=== PATIENT | male | born 1930 | race Caucasian/White ===

== ENCOUNTER 2016-12-09 07:46 | Day surgery (SDC) | payer MEDICARE ==
[~2016-12-09 07:46] MED LIST: CEFAZOLIN SODIUM 2 GRAM PREMIX 100 ML IV ONE; IV START KIT ONE; LACTATED RINGERS 1,000 ML ONE
[2016-12-09] MEDS ORDERED: CEFAZOLIN SODIUM 2 GRAM DUPLEX 50 ML IV PRN (08:00)
[2016-12-09] MEDS ORDERED: FENTANYL 5 ML ONE (08:42)
[2016-12-09] MEDS ORDERED: MIDAZOLAM HCL 1 MG/ML 2ML VIAL ONE (08:42)
[2016-12-09] MEDS ORDERED: IOPAMIDOL 300 (61%) 30 ML SDV ONE (08:42)
[2016-12-09] MEDS ORDERED: SODIUM CHLORIDE 0.9% 50 ML ONE (08:42)
[2016-12-09] MEDS ORDERED: BUPIVACAINE 0.5% W/EPI SDV 30 ML VIAL ONE (08:42)
[2016-12-09] MEDS ORDERED: LIDOCAINE 2% (MULTI DOSE) 10 ML VIAL ONE (09:09)
[2016-12-09] MEDS ORDERED: ROCURONIUM BROMIDE 10 MG/ML DOSE IV ONE (09:09)
[2016-12-09] MEDS ORDERED: SUCCINYLCHOLINE CHL 20 MG/ML DOSE ONE (09:09)
[2016-12-09] MEDS ORDERED: PROPOFOL 20 ML IV ONE (09:09)
[2016-12-09] MEDS ORDERED: ONDANSETRON 4 MG/2ML 2 ML VIAL IV PRN (09:10)
[2016-12-09] MEDS ORDERED: ATROPINE SULFATE 0.4 MG/1 ML VIAL IV PRN (09:10)
[2016-12-09] MEDS ORDERED: PROMETHAZINE HCL 25 MG/ML VIAL IM PRN (09:10)
[2016-12-09] MEDS ORDERED: FENTANYL 100 MCG/2 ML VIAL IV PRN (09:10)
[2016-12-09] MEDS ORDERED: NALOXONE HCL 0.4 MG/ML VIAL IV PRN (09:10)
[2016-12-09] MEDS ORDERED: LACTATED RINGERS 1,000 ML IV SCH (09:15)
[2016-12-09] MEDS ORDERED: ONDANSETRON 4 MG/2ML 2 ML VIAL ONE (09:49)
[2016-12-09] MEDS ORDERED: DEXAMETHASONE SOD PHOS 4 MG/1 ML VIAL ONE (09:49)
[2016-12-09] MEDS ORDERED: EPHEDRINE SULFATE UD SYR 25 MG 25 MG/5 ML SYRINGE IV ONE (09:52)
[2016-12-09] MEDS ORDERED: GLYCOPYRROLATE 0.2 MG/ML 1ML VIAL ONE (10:54)
[2016-12-09] MEDS ORDERED: NEOSTIGMINE METHYLSULFATE 1 MG/ML DOSE ONE (10:54)
[2016-12-09] MEDS ORDERED: HYDRALAZINE HCL 20 MG/1 ML VIAL IV PRN (11:13)
[2016-12-09 11:14] VITALS: BMI 23.6
[2016-12-09] MEDS ORDERED: HYDROMORPHONE HCL 1 MG/ML SYRINGE ONE (11:29)
[2016-12-09] MEDS: HYDROMORPHONE HCL 1 MG/ML SYRINGE IV PRN ×2 (11:31→11:40)
[2016-12-09] MEDS ORDERED: FENTANYL 100 MCG/2 ML VIAL ONE (11:43)
--- NOTE | 2016-12-09 11:43 | RAD ---
CHOLANGIOGRAM-OPERATIVE HISTORY: Operative cholecystectomy. COMPARISONS: None. FINDINGS: Multiple intraoperative fluoroscopic images were submitted demonstrating injection of the cystic duct stump. There is contrast filled of the extrahepatic biliary tree and a portion of the intrahepatic biliary tree. The visualized common bile duct appears to be prominent though no definite retained filling defects are suggested. Flow of contrast is noted into the duodenal C-sweep. A total of 62 seconds of fluoroscopy was utilized for the examination. IMPRESSION: 1. Intraoperative fluoroscopy following cholecystectomy with no definitive retained filling defects observed and flow of contrast noted into the duodenal C-sweep.
[2016-12-09] MEDS ORDERED: HYDROMORPHONE HCL 1 MG/ML SYRINGE IV PRN (11:56)
[2016-12-09] MEDS ORDERED: PUMP TUBING ONE (12:25)
[2016-12-09] MEDS ORDERED: SODIUM CHLORIDE 0.9% FLUSH 20 ML ONE (12:25)
[2016-12-09] MEDS: LACTATED RINGERS 1,000 ML IV SCH (12:33)
[2016-12-09] MEDS ORDERED: HYDROMORPHONE HCL 0.5 MG/0.5 ML SYRINGE IV PRN (12:53)
[2016-12-09] MEDS: ONDANSETRON 4 MG/2ML 2 ML VIAL IV PRN ×2 (14:23→19:57)
[2016-12-09] MEDS: OXYCODONE HCL 5 MG TABLET PO PRN ×2 (16:49→21:23)
[2016-12-09] MEDS: ACETAMINOPHEN 325 MG TABLET PO PRN ×2 (16:49→23:57)
--- NOTE | 2016-12-09 20:52 | OP ---
ELSA HAILE [id number] DATE OF OPERATION: December 09, 2016 PREOPERATIVE DIAGNOSIS: Chronic cholecystitis with cholelithiasis. POSTOPERATIVE DIAGNOSES: 1. Chronic cholecystitis with cholelithiasis. 2. Dilated common bile duct. 3. Intraabdominal adhesions. PROCEDURES: 1. LAPAROSCOPIC CHOLECYSTECTOMY WITH INTRAOPERATIVE CHOLANGIOGRAM. 2. LYSIS OF ADHESIONS. SURGEON: Carlos Scott M.D. LAW TUTOR: Kristi Espinoza ANESTHESIA: General endotracheal by Yunior Bello C.R.N.A. INDICATIONS: This is an 86-year-old male who has had symptoms of chronic biliary colic. He has ultrasound evidence of cholelithiasis. On ultrasound he was not noted to have biliary dilation. DESCRIPTION: With informed consent he was taken to the operating room where he was laid supine on the operating room table. General endotracheal anesthetic was administered. The abdomen was prepped and draped in the usual sterile fashion. Marcaine was infiltrated below the umbilicus. Incision was made. We dissected down to the fascia, grasped that with Bharat clamps and divided it with curved Sellers scissors. Sutures of Surgilon were placed in the fascial edges and a Tristian port was placed. A pneumoperitoneum was created. We could see that there were adhesions up in the right upper quadrant extending down into the right lower quadrant. There was no clear cause for this. I decided to place a port to the left of midline in the upper abdomen. This was a 5 mm port. Using that, I was able to take the adhesions down from the anterior abdominal wall in the right upper quadrant extending down into the right lower quadrant to the lateral gutter. Again, no clear cause for this was seen. After this, two 5 mm ports were placed on the right lateral abdominal wall. The fundus of the gallbladder was grasped and retracted cephalad. There were adhesions of the duodenum up to the gallbladder. This was carefully dissected free. Eventually we identified a large dilated cyst duct. I was able to identify a cystic duct common duct junction. The common bile duct appeared possibly dilated as well. A clip was placed on the cystic duct near the gallbladder. The duct was partially transected. A cholangiogram catheter was placed. A cholangiogram was obtained showing a dilated common bile duct. There was possibly some sludge down in the distal common bile duct but no clear defined stone. Contrast easily flowed into the duodenum. I was confident in my cystic duct common duct junction anatomy. Contrast was seen refluxing up into the hepatic ducts. The catheter was removed. We ended up placing three clips across the cystic duct stump and it was completely transected. The cystic artery was identified and dissected free. Three clips were placed and it was transected leaving two clips on the stump. The gallbladder was then taken off the liver bed using electrocautery. Once , it was placed within an EndoCatch bag and removed through the infraumbilical port site. The right upper quadrant was irrigated. We appeared to have adequate hemostasis. The ports were removed, and the pneumoperitoneum was evacuated. The infraumbilical fascial defect was closed with [id number] suture of Surgilon. The other fascial defects were small. Skin was closed with subcuticular #4-0 Monocryl. Mastisol and SteriStrips were placed. Sterile dressings were applied. He tolerated the procedure and was taken to the recovery room in stable condition. A note was made that needle, instrument and lap counts were reported as correct at the time of closure. Cc: Alex Bryan M.D.
[2016-12-09] MEDS ORDERED: Non Formulary Drug 1 EACH EA (Omega-3 Fatty Acids/Fish Oil [Fish Oil 1,000 Mg Softgel] 1 E PO SCH (21:00)
[2016-12-09] MEDS ORDERED: TOLTERODINE LA 4 MG CAPSULE PO SCH (21:00)
[2016-12-09] MEDS ORDERED: FLUNISOLIDE NS SCH (21:00)
[2016-12-09] MEDS: METOPROLOL TARTRATE 25 MG TABLET PO SCH (21:00)
[2016-12-09] MEDS ORDERED: POLYETHYLENE GLYCOL 3350 17 G POWD.SUSP PO SCH (22:00)
[2016-12-10] MEDS: LACTATED RINGERS 1,000 ML IV SCH (04:13)
[2016-12-10 06:51] LABS: HEMATOCRIT 34.9 % (32.0-52.0); HEMOGLOBIN 11.9 gm/l (14.0-18.0); MEAN CELL VOLUME 94.1 fl (80.0-94.0); MEAN CORPUSCULAR HEMOGLOBIN 32.1 pg (27.0-31.0); MEAN CORPUSCULAR HGB CONC 34.1 g/dl (33.0-37.0); RED CELL DISTRIBUTION WIDTH 12.7 % (11.5-14.5)
[2016-12-10 07:14] LABS: ALB/GLOB RATIO 1.3 (>1.0); ALBUMIN 3.2 gm/dL (3.5-5.7); CALCIUM 8.4 mg/dL (8.6-10.3)
[2016-12-10] MEDS ORDERED: LEVOTHYROXINE SODIUM 88 MCG TABLET PO SCH (07:30)
[2016-12-10 07:35] VITALS: BP 143/80
[2016-12-10] MEDS: ACETAMINOPHEN 325 MG TABLET PO PRN (07:46)
--- NOTE | 2016-12-10 07:50 | PDOC43 ---
- Subjective Subjective: Reports Pain Tolerable, Denies Bloating, Denies Nausea - Objective Vital Signs Temperature 97.8 F 12/10/16 07:33 Pulse Rate 97 12/10/16 07:33 Respiratory Rate 17 12/10/16 07:33 Blood Pressure 143/80 12/10/16 07:33 O2 Saturation by Pulse Oximetry 98 12/10/16 07:33 Oxygen Delivery Method Room Air Oxygen Flow Rate 0 Laboratory 12/10/16 06:35 12/10/16 06:35 12/10/16 06:35 RBC 3.71 L MCV 94.1 H MCH 32.1 H Calcium 8.4 L AST 54 H Total Protein 5.6 L Albumin 3.2 L Active Medication Orders Category Date Time Status Acetaminophen [Tylenol] Med 12/09/16 11:56 Active 650 mg PO Q6H PRN Calcium Carbonate/Vitamin D3 Med 12/10/16 09:00 Active 1 each PO DAILY Calcium Polycarbophil [Fibercon] Med 12/10/16 09:00 Active 625 mg PO DAILY Flunisolide [Nasalide] Med 12/09/16 21:00 Active 2 sprays NS BID Hydralazine HCl [Apresoline] Med 12/09/16 11:13 Active 5 mg IV Q10M PRN Hydromorphone HCl [Dilaudid] Med 12/09/16 11:56 Active 0.5 - 1 mg IV Q1H PRN Hydromorphone HCl [Dilaudid] Med 12/09/16 12:53 Active 0.5 - 1 mg IV Q1H PRN Lactated Ringers 1,000 ml Med 12/09/16 11:56 Active IV 75 mls/hr Levothyroxine Sodium [Levothroid] Med 12/10/16 07:30 Active 88 mcg PO QAMAC Losartan Potassium [Cozaar] Med 12/10/16 09:00 Active 25 mg PO DAILY Metoprolol Tartrate [Lopressor] Med 12/09/16 21:00 Active 12.5 mg PO BID [place]-3 Fatty Acids/Fish Oil [Fish Oil 1,000 mg Softgel Med 12/09/16 21:00 Hold ] 1 each PO BID Ondansetron 4 mg/2ml Vial [Zofran] Med 12/09/16 11:56 Active 4 mg IV Q6H PRN Oxycodone HCl [Roxicodone] Med 12/09/16 11:56 Active 5 - 10 mg PO Q4H PRN Polyethylene Glycol 3350 [Miralax] Med 12/09/16 22:00 Active 17 g PO 2200 Simvastatin [Zocor] Med 12/10/16 09:00 Active 40 mg PO DAILY Sodium Chloride 0.9% Flush [Normal Saline 10ml Flush] Med 12/09/16 12:54 Active 10 ml IV PRN PRN Sodium Chloride 0.9% Flush [Normal Saline 10ml Flush] Med 12/09/16 17:00 Active 10 ml IV Q8HR Tolterodine LA [Detrol LA] Med 12/09/16 21:00 Active 4 mg PO BEDTIME Intake and Output 12/09/16 12/10/16 12/11/16 06:59 06:59 06:59 Intake Total 2900 Output Total 795 Balance 2105 General: Alert, Oriented x3 Abdomen: Soft, Non-Distended Wound: Dressing Clean/Dry/Intact - Assessment/ Plan (1) Calculus of gallbladder with chronic cholecystitis without obstruction Status: Acute Assessment/ Plan: Doing well. Discharge to home. May consider post-op MRCP. Discuss at post-op visit.
[2016-12-10] MEDS: METOPROLOL TARTRATE 25 MG TABLET PO SCH (08:42)
[2016-12-10] MEDS ORDERED: CALCIUM CARBONATE 600 MG/VITAMIN D3 400 UNIT/TABLET PO SCH (09:00)
[2016-12-10] MEDS ORDERED: CALCIUM POLYCARBOPHIL 625 MG TABLET PO SCH (09:00)
[2016-12-10] MEDS ORDERED: LOSARTAN POTASSIUM 50 MG TABLET PO SCH (09:00)
[2016-12-10] MEDS ORDERED: SIMVASTATIN 40 MG TABLET PO SCH (09:00)
--- NOTE | 2016-12-11 11:21 | SURGPATH ---
[facility] [address] [place] [id number] Patient Name: ELSA HAILE MR#: [id number] : 1930 Gender: M Specimen #: [id number] Collected: 12/09/2016 Received: 12/10/2016 Reported: 12/11/2016 Submitting Phys: KEESHA BEEBE Copy To Phys: [facility] Clinical History / Pre-Operative Diagnosis: CHRONIC CHOLECYSTITIS WITH CHOLELITHIASIS Specimen Source / Surgical Procedure Performed: GALLBLADDER Interpretation: GALLBLADDER, CHOLECYSTECTOMY: - MODERATE CHRONIC CHOLECYSTITIS. - CHOLELITHIASIS. - NO EVIDENCE OF MALIGNANCY. Electronically Signed Out Leonel Blackwell M.D., Ph.D. Gross Description: The specimen is received in a formalin filled container labeled with the patient's name and "gallbladder". An intact engorged gallbladder is 8.0 x 3.3 cm. The serosa is smooth and armstrong green. The gallbladder wall averages 0.2 cm but is focally fibrotic and thickened to 1 cm at the fundus. There are thin-walled cystic spaces up to 0.6 cm. The mucosa is green stout and velvety. The lumen contains copious amount of watery yellow-green bile and a few irregular black calculi up to 1 cm. Four high school admissions representative sections are submitted in one cassette including a cross section through the cystic duct surgical margin, a central cross section and two longitudinal sections through the thickened the fundus. Tony Barcenas Microscopic Description: Examination of multiple sections from the gallbladder show gallbladder wall with a moderate chronic inflammatory cell infiltrates associated with scattered Rokitansky-Aschoff sinuses. There is no evidence of malignancy. 1: [id number] K80.10
== END 2016-12-10 10:10 | disposition home or self-care (01) ==
LOC: SDC 07:46 → MS 11:56 → SDC 12-10 10:10
PROVIDERS: ATTEND Surgery
PROC: 0FT44ZZ Resection of Gallbladder, Percutaneous Endoscopic Approach (ICD-10-PCS; principal; 2016-12-09)
PROC: BF141ZZ Fluoroscopy of Gallbladder, Bile Ducts and Pancreatic Ducts using Low Osmolar Contrast (ICD-10-PCS; 2016-12-09)
DX: K80.10 Calculus of gallbladder with chronic cholecystitis without obstruction (principal); K83.8 Other specified diseases of biliary tract; K66.0 Peritoneal adhesions (postprocedural) (postinfection); I10 Essential (primary) hypertension; R00.1 Bradycardia, unspecified; C61 Malignant neoplasm of prostate; G47.30 Sleep apnea, unspecified; H11.32 Conjunctival hemorrhage, left eye; Z79.82 Long term (current) use of aspirin; Z88.5 Allergy status to narcotic agent
CPT/HCPCS: 85027; 80053; 74300; 94010; 47563; J0360; A9270 ×11; J1170 ×2; J3010 ×2; J1100; J2250; J2405 ×3; J7120 ×2; J7030; Q9967; J2001; J0690